=== PATIENT | male | born 1995 | race Caucasian/White ===

== ENCOUNTER 2021-03-01 12:21 | Emergency (ER) | payer SELFPAY ==
[~2021-03-01] VITALS: Ht 170.2 cm; Wt 76.7 kg
--- NOTE | 2021-03-01 12:22 | NUR ---
PT ASSISTED INTO BED 4 BY [facility]
[2021-03-01 12:31] VITALS: BP 138/68
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
[2021-03-01] MEDS ORDERED: CYCLOBENZAPRINE 10 MG TAB PO ONE (13:15)
[2021-03-01] MEDS ORDERED: KETOROLAC 30 MG/ML VIAL IM ONE (13:15)
[2021-03-01] MEDS ORDERED: NAPR-54 PO (13:47)
[2021-03-01] MEDS ORDERED: CYCL-711 PO (13:47)
[2021-03-01 14:01] VITALS: BP 129/72
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
== END 2021-03-01 14:01 | disposition home or self-care (01) ==
LOC: MED 12:21
DX: R07.89 Other chest pain (principal); V89.2XXA Person injured in unspecified motor-vehicle accident, traffic, initial encounter; Y93.89 Activity, other specified; Y92.410 Unspecified street and highway as the place of occurrence of the external cause; Y99.8 Other external cause status
CPT/HCPCS: 71045; 96372; 99283; J1885; Q0092